=== PATIENT | female | born 1995 | race Caucasian/White ===

== ENCOUNTER 2019-12-17 15:18 | Emergency (ER) | payer OTHER ==
[~2019-12-17] VITALS: Ht 154.9 cm; Wt 96.8 kg
[2019-12-17] MEDS ORDERED: IV NORMAL SALINE 1,000ML 1,000 ML IV ONE (15:30)
--- NOTE | 2019-12-17 15:44 | PHYS DOC ---
General Adult EDM: Chief Complaint: VAGINAL BLEEDING HPI: HPI: The history was obtained from the patient. Patient is a 24-year-old female with PMH protein S deficiency who presents with a chief complaint of vaginal spotting abdominal pain. Patient states that she is approximately 7 we eks . States the first day of her last menstrual period was October 27. She states she has had intermittent lower abdominal cramping discomfort over the past week. States it seems to be worse at work when she is on her feet a lot. She notes today approximate hour prior to arrival she began having vaginal spotting. She states it is bright red. States is very minimal amount. Denies clot passage. She does note a history of unprovoked DVT in her left popliteal area. However today she denies denies syncope. Denies chest pain or shortness of breath. She states that she has not had ultrasound to confirm IUP. She states that she is scheduled to see PHYSICS PROFESSOR in [place] in the next few weeks. He has not tried Tylenol at home with minimal relief. She also notes that her admitted to an affair recently and she was prophylactically treated for STDs with oral medication. She is unsure the name of the medication. She denies any vaginal discharge. Denies any urinary symptoms. No other complaints. Review of Systems: Review of Systems: Constitutional: Denies fever or chills Eyes: Denies change in visual acuity HENT: Denies nasal congestion or sore throat Respiratory: Denies cough or shortness of breath Cardiovascular: Denies chest pain or edema GI: Positive for abdominal pain : Positive for vaginal bleeding Musculoskeletal: Denies back pain or joint pain Integument: Denies rash Neurologic: Denies headache, focal weakness or sensory changes Endocrine: Denies polyuria or polydipsia Lymphatic: Denies swollen glands Psychiatric: Denies depression or anxiety Heart Score: Risk Factors: Risk Factors: DM, Current or recent (<one month) smoker, HTN, HLP, family history of CAD, obesity. Risk Scores: Score 0 - 3: 2.5% MACE over next 6 weeks - Discharge Home Score 4 - 6: 20.3% MACE over next 6 weeks - Admit for Clinical Observation Score 7 - 10: 72.7% MACE over next 6 weeks - Early Invasive Strategies Current Medications: Current Meds: Current Medications Medications (Trade) Dose Ordered Sig/Stefanie Start Time Stop Time Status Last Admin Dose Admin Acetaminophen (Tylenol) 1,000 mg 1X ONCE 12/17/19 15:45 12/17/19 15:46 UNV Sodium Chloride 1,000 ml @ 1,000 mls/hr 1X ONCE 12/17/19 15:30 12/17/19 16:29 UNV Physical Exam: PE: Constitutional: Well developed, well nourished, no acute distress, non-toxic appearance. [] HENT: Normocephalic, atraumatic, bilateral external ears normal, oropharynx moist, no oral exudates, nose normal. [] Eyes: PERRLA, EOMI, conjunctiva normal, no discharge. [] Neck: Normal range of motion, no tenderness, supple, no stridor. [] Cardiovascular:Heart rate regular rhythm, no murmur [] Lungs & Thorax: Bilateral breath sounds clear to auscultation [] Abdomen: Bowel sounds normal, soft, no tenderness, no masses, no pulsatile masses. 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 No purulent discharge appreciated. No active bleeding or blood in the vaginal canal noted. Cervical os closed. No adnexal tenderness appreciated. Skin: Warm, dry, no erythema, no rash. [] Back: No tenderness, no CVA tenderness. [] Extremities: No tenderness, no cyanosis, no clubbing, ROM intact, no edema. [] Neurologic: Alert and oriented X 3, normal motor function, normal sensory function, no focal deficits noted. [] Psychologic: Affect normal, judgement normal, mood normal. [] Current Patient Data: Labs: Laboratory Tests Test 12/17/19 15:30 12/17/19 16:00 Urine Collection Type Unknown Urine Color Yellow Urine Clarity Hazy Urine pH 6.0 Urine Specific [place] 1.025 Urine Protein Neg Urine Glucose (UA) Neg mg/dL Urine Ketones (Stick) 15 mg/dL Urine Blood Trace Urine Nitrite Neg Urine Bilirubin Neg Urine Urobilinogen Dipstick 0.2 mg/dL Urine Leukocyte Esterase Mod Urine RBC Occ /HPF Urine WBC 20-40 /HPF Urine Squamous Epithelial Cells Many /LPF Urine Bacteria Mod /HPF White Blood Count 10.3 x10^3/uL Red Blood Count 4.67 x10^6/uL Hemoglobin 13.9 g/dL Hematocrit 41.3 % Mean Corpuscular Volume 89 fL Mean Corpuscular Hemoglobin 30 pg Mean Corpuscular Hemoglobin Concent 34 g/dL Red Cell Distribution Width 14.3 % Platelet Count 325 x10^3/uL Neutrophils (%) (Auto) 71 % Lymphocytes (%) (Auto) 23 % Monocytes (%) (Auto) 4 % Eosinophils (%) (Auto) 2 % Basophils (%) (Auto) 0 % Neutrophils # (Auto) 7.3 x10^3uL Lymphocytes # (Auto) 2.4 x10^3/uL Monocytes # (Auto) 0.4 x10^3/uL Eosinophils # (Auto) 0.2 x10^3/uL Basophils # (Auto) 0.0 x10^3/uL Maternal Serum HCG Beta Subunit 3290 mIU/mL Sodium Level 138 mmol/L Potassium Level 3.9 mmol/L Chloride Level 102 mmol/L Carbon Dioxide Level 26 mmol/L Anion Gap 10 Blood Urea Nitrogen 11 mg/dL Creatinine 0.8 mg/dL Estimated GFR (Cockcroft-Gault) 88.9 BUN/Creatinine Ratio 14 Glucose Level 98 mg/dL Calcium Level 9.2 mg/dL Total Bilirubin 0.7 mg/dL Aspartate Amino Transf (AST/SGOT) 18 U/L Alanine Aminotransferase (ALT/SGPT) 27 U/L Alkaline Phosphatase 65 U/L Total Protein 7.3 g/dL Albumin 3.9 g/dL Albumin/Globulin Ratio 1.1 Current Medications Medications (Trade) Dose Ordered Sig/Stefanie Route PRN Reason Start Time Stop Time Status Last Admin Dose Admin Sodium Chloride 1,000 ml @ 1,000 mls/hr 1X ONCE IV 12/17/19 15:30 12/17/19 16:41 DC Acetaminophen (Tylenol) 1,000 mg 1X ONCE PO 12/17/19 15:45 12/17/19 16:41 DC 12/17/19 15:45 Vital Signs: Vital Signs Date Time Temp Pulse Resp B/P (MAP) Pulse Ox O2 Delivery O2 Flow Rate FiO2 12/17/19 17:43 98.9 102 18 135/91 (106) 98 EKG: EKG: [] Radiology/Procedures: Radiology/Procedures: [address] [address] IMAGING REPORT Signed PATIENT: JAZLYN ARGUELLO MACCOUNT: [id number] : 1995 LOCATION: ER AGE: 24 SEX: F EXAM STATUS: REG ER ORD. PHYSICIAN: ULISES ROBLES DO REASON: VAG BLEEDING IN PREG, APPROX 7 WEEKS PROCEDURE: OB <14 WKS W/TV OB <14 WKS W/TV History: Reason: VAG BLEEDING IN PREG, APPROX 7 WEEKS / Spl. Instructions: / History: Comparison: None. Technique: Grayscale and color Doppler imaging of the pelvis was performed using transabdominal technique. Findings: The uterus measures 8.4 x 6.1 x 5.3 cm. Retroverted Possible gestational sac within the endometrium measures 0.49 cm. Estimated gestational age by ultrasound 5 weeks 2 days. No yolk sac or pole is identified. Small nonspecific fluid within the endometrial canal. Right ovary measures 3.4 x 1.9 x 2.1 cm. Left ovary measures 3.4 x 2.5 x 1.9 cm. Complicated left ovarian follicle measures 1.9 cm. Normal Doppler flow to the ovaries bilaterally. No adnexal masses are seen. Small free fluid, likely physiologic. IMPRESSION: 1. Possible gestational sac within the endometrial canal. Recommend short-term ultrasound follow-up and serial beta hCG testing. 2. Small nonspecific fluid within the endometrial canal. 3. Small complicated left ovarian follicle. Electronically signed by: Clinton Claudio DO (12/17/2019 4:35 PM) [facility] DICTATED AND SIGNED BY: CLINTON CLAUDIO DO DATE: 12/17/19 7480 CC: PCP,NO; ULISES ROBLES DO ~ [] Course & Med Decision Making: Course & Med Decision Making Pertinent Labs and Imaging studies reviewed. (See chart for details) Patient is a well-appearing 24-year-old female who presents with chief complaint of abdominal pain with vaginal bleeding during . Initial vital signs are grossly unremarkable. Pelvic ultrasound revealed potential early gestational sac in the uterus. No secondary findings of ectopic noted. Pelvic exam did not show any concerning vaginal discharge or bleeding. Remainder of laboratory analysis unremarkable. Blood type A+. RhoGam will be deferred. hCG level approximately 3200. Wet prep did show no clue cells no trichomonas but secondary findings concerning for bacterial vaginosis. Urinalysis does show bacteria. Given her current status she will be treated with oral Macrobid and suppository metronidazole. I do suspect the patient is experiencing an early intrauterine . And this cannot be confirmed due to her low hCG level. Given the patient's abdomen remains benign on repeat examination, no active bleeding, no syncope, and normal vital signs I do feel she is appropriate for discharge home with outpatient follow-up. I did instruct her to have repeat hormone level testing or ultrasound testing in the next 2 days. Does have an PHYSICS PROFESSOR she states she can follow-up with. Patient is agreeable to this plan. Return precautions discussed and understood. Stable for discharge home. Dragon Disclaimer: Dragon Disclaimer: This electronic medical record was generated, in whole or in part, using a voice recognition dictation system. Departure Departure: Disposition: HOME/RESIDENCE PRIOR TO ADM Condition: GOOD Referrals: PCP,NO (PCP) Patient Instructions: Abdominal Pain During , Vaginal Bleeding During , First Trimester Additional Instructions: Please follow-up with your primary care physician, PHYSICS PROFESSOR, our facility in 2 days for repeat hormone level testing or repeat ultrasound testing should you continue to have symptoms. Scripts Metronidazole (METROGEL-VAGINAL) 70 Gm Gel.w.appl 1 APPFUL VG QHS for vaginal discharge for 5 Days, #1 EACH 0 Refills Prov: ULISES ROBLES DO 12/17/19 Nitrofurantoin Monohyd/M-Cryst (MACROBID 100 MG CAPSULE) 100 Mg Capsule 100 CAP PO BID for UTI for 5 Days, #1000 CAP Prov: ULISES ROBLES DO 12/17/19 Justification of Admission: Justification of Admission: Justification of Admission Dx: N/A ULISES ROBLES DO Dec 17, 2019 15:44
[2019-12-17] MEDS ORDERED: ACETAMINOPHEN 500 MG TABLET PO ONE (15:45)
--- NOTE | 2019-12-17 16:38 | RAD ---
OB <14 WKS W/TV History: Reason: VAG BLEEDING IN PREG, APPROX 7 WEEKS / Spl. Instructions: / History: Comparison: None. Technique: Grayscale and color Doppler imaging of the pelvis was performed using transabdominal technique. Findings: The uterus measures 8.4 x 6.1 x 5.3 cm. Retroverted Possible gestational sac within the endometrium measures 0.49 cm. Estimated gestational age by ultrasound 5 weeks 2 days. No yolk sac or pole is identified. Small nonspecific fluid within the endometrial canal. Right ovary measures 3.4 x 1.9 x 2.1 cm. Left ovary measures 3.4 x 2.5 x 1.9 cm. Complicated left ovarian follicle measures 1.9 cm. Normal Doppler flow to the ovaries bilaterally. No adnexal masses are seen. Small free fluid, likely physiologic. IMPRESSION: 1. Possible gestational sac within the endometrial canal. Recommend short-term ultrasound follow-up and serial beta hCG testing. 2. Small nonspecific fluid within the endometrial canal. 3. Small complicated left ovarian follicle. Electronically signed by: Clinton Claudio DO (12/17/2019 4:35 PM) [facility]
[2019-12-17 16:45] LABS: BASO % 0 % (0-3); EOS # 0.2 x10^3/uL (0.0-0.7); EOS % 2 % (0-3); HEMATOCRIT 41.3 % (36.0-47.0); HEMOGLOBIN 13.9 g/dL (12.0-15.5); LYMPH # 2.4 x10^3/uL (1.0-4.8); LYMPH % 23 % (24-48); MEAN CORPUSCULAR HEMOGLOBIN 30 pg (25-35); MEAN CORPUSCULAR HGB CONC 34 g/dL (31-37); MEAN CORPUSCULAR VOLUME 89 fL (79-100); MONO # 0.4 x10^3/uL (0.0-1.1); MONO % 4 % (0-9); NEUT # 7.3 x10^3uL (1.8-7.7); NEUT % 71 % (31-73); PLATELET COUNT 325 x10^3/uL (140-400); RED BLOOD COUNT 4.67 x10^6/uL (3.50-5.40); RED CELL DISTRIBUTION WIDTH 14.3 % (11.5-14.5); WHITE BLOOD COUNT 10.3 x10^3/uL (4.0-11.0)
[2019-12-17 16:54] LABS: CALCIUM 9.2 mg/dL (8.5-10.1); CREATININE 0.8 mg/dL (0.6-1.0); GFR 88.9; POTASSIUM 3.9 mmol/L (3.5-5.1)
[2019-12-17 17:06] LABS: ALBUMIN 3.9 g/dL (3.4-5.0); ALBUMIN/GLOBULIN RATIO 1.1 (1.0-1.7); TOTAL BILIRUBIN 0.7 mg/dL (0.2-1.0); TOTAL PROTEIN 7.3 g/dL (6.4-8.2)
[2019-12-17 17:28] LABS: BACTERIA,URINE MOD /HPF (0-FEW); BILIRUBIN,URINE NEG (NEG); CLARITY,URINE HAZY; COLOR,URINE YELLOW; GLUCOSE,URINE NEG (NEG); NITRITE,URINE NEG (NEG); RBC,URINE OCC /HPF (0-2); SQUAMOUS EPITHELIAL CELL,UR MANY /LPF; UROBILINOGEN,URINE 0.2 mg/dL (0.2 mg/dL); WBC,URINE 20-40 /HPF (0-4)
[2019-12-17] MEDS ORDERED: NITROFURANTOIN MONOHYD/M-CRYST 100 MG CAPSULE. PO ONE (17:30)
[2019-12-17] MEDS ORDERED: NITR100C62 PO (17:40)
[2019-12-17] MEDS ORDERED: METR70GE14 VG (17:40)
[2019-12-17] MEDS ORDERED: metroNIDAZOLE 0.75% VAGINAL 1 APP TUBE VG SCH (17:45)
[2019-12-17 18:30] VITALS: BP 135/91
== END 2019-12-17 18:30 | disposition home or self-care (01) ==
LOC: ER 15:18
DX: O46.91 Antepartum hemorrhage, unspecified, first trimester (principal); Z3A.01 Less than 8 weeks gestation of pregnancy
CPT/HCPCS: 36415; 76801; 76817; 80053; 81001; 84702; 85025; 86850; 86900; 86901; 87491; 87591; 99284; Q0111